=== PATIENT | female | born 1990 | race Caucasian/White ===

== ENCOUNTER 2022-12-21 08:00 | Outpatient (CLI) | payer SELFPAY ==
[2022-12-21 11:56] LABS: BILIRUBIN,URINE NEGATIVE (NEGATIVE); GLUCOSE, URINE (UA) NEGATIVE (NEGATIVE); KETONES,URINE (UA) NEGATIVE (NEGATIVE); LEUKOCYTE ESTERASE, URINE NEGATIVE (NEGATIVE); NITRITE,URINE NEGATIVE (NEGATIVE); OCCULT BLOOD,URINE NEGATIVE (NEGATIVE); PH,URINE 6.5 PH (5.0-7.5); PROTEIN,URINE NEGATIVE (NEGATIVE); UROBILINOGEN,URINE 0.2 (NORMAL) E.U./dL (NORMAL)
[2022-12-21 12:12] LABS: AMORPHOUS SEDIMENT,UR Marked /LPF; BACTERIA,URINE Few /HPF (None Seen); CLARITY,URINE CLOUDY (CLEAR); RBC,URINE 0-5 /HPF (0-5); SQUAMOUS EPITHELIAL CELL,UR RARE Squamous (<= Few); WBC,URINE 0-3 /HPF (0-5)
== END 2022-12-21 23:59 | disposition home or self-care (01) ==
LOC: LAB.WC 08:00
PROVIDERS: ATTEND Nurse Practitioner
DX: Z34.00 Encounter for supervision of normal first pregnancy, unspecified trimester (principal)
CPT/HCPCS: 81001; 87086

== ENCOUNTER 2023-01-03 10:16 | Outpatient (CLI) | payer OTHER ==
--- NOTE | 2023-01-04 08:30 | Ultrasound Report ---
PROCEDURE: OB First Trimester w/TV INDICATIONS: POSITIVE TEST OUTSIDE/PRIOR DATING DATA: Last menstrual period (LMP): 11/01/2022. LMP-based estimated date of delivery (YOMAIRA): 08/08/2023. First dating scan (date and location): 01/03/2023 at Estimated date of delivery (YOMAIRA) from first dating scan: 08/04/2023. TECHNIQUE: Real-time scanning was performed of the fetus and maternal pelvic organs, with image documentation. Endovaginal scanning was also performed to better visualize the fetus and maternal ovaries. COMPARISON: None. FINDINGS: Intrauterine gestational sac present. Embryo: A single living IUP is present. The estimated gestational ages 9 weeks 4 days based on crown -rump length. Heart rate: 164 bpm. Other: No perigestational fluid collection. Measurement variability in dating: +/- 4 weeks by LMP, +/- 7 days by mean sac diameter (use before 6 weeks gestation if crown-rump length not able to be measured), +/- 5 days by crown-rump length (6-12 weeks gestation). Maternal organs: Ovaries appear within normal limits. IMPRESSION: 1. A single living IUP with an estimated gestational age 9 weeks 4 days based on the current ultrasou nd, corresponding to ultrasound YOMAIRA 08/04/2023. Reviewed by: Ev Porter MD on 01/04/2023 8:29 AM PDT Approved by: Ev Porter MD on 01/04/2023 8:29 AM PDT Station ID: [id number]
== END 2023-01-03 10:17 | disposition home or self-care (01) ==
LOC: DI 10:16
PROVIDERS: ATTEND Nurse Practitioner
DX: Z34.01 Encounter for supervision of normal first pregnancy, first trimester (principal)

== ENCOUNTER 2023-01-13 08:00 | Outpatient (CLI) | payer OTHER ==
[2023-01-13 20:19] LABS: CHLAMYDIA TRACHOMATIS DNA NEGATIVE (NEGATIVE); NEISSERIA GONORRHOEAE DNA NEGATIVE (NEGATIVE); TRICHOMONAS VAGINALIS DNA NEGATIVE (NEGATIVE)
== END 2023-01-13 23:59 | disposition home or self-care (01) ==
LOC: LAB.WC 08:00
PROVIDERS: ATTEND Obstetrics & Gynecology
DX: Z11.3 Encounter for screening for infections with a predominantly sexual mode of transmission (principal)
CPT/HCPCS: 87491; 87591; 87661